=== PATIENT | female | born 1960 ===

== ENCOUNTER 2024-04-03 02:37 | Emergency (ER) | payer SELFPAY ==
[2024-04-03] MEDS: Ketorolac 30 MG/ML SDV IM ONE (03:10)
[2024-04-03] MEDS: Lidocaine 1% with EPINEPHrine 1:100,000 20 ML MDV INJECT ONE (03:40)
[2024-04-03] MEDS: Acetaminophen/HYDROcodone 325-5 MG Tab PO ONE (03:40)
[2024-04-03] MEDS ORDERED: Acetaminophen/HYDROcodone 325-5 MG Tab ONE (04:00)
== END 2024-04-03 04:15 | disposition home or self-care (01) ==
LOC: LB.ED 02:37
DX: S52.572A Other intraarticular fracture of lower end of left radius, initial encounter for closed fracture (principal); S52.612A Displaced fracture of left ulna styloid process, initial encounter for closed fracture; S01.512A Laceration without foreign body of oral cavity, initial encounter; Z88.2 Allergy status to sulfonamides; Z79.82 Long term (current) use of aspirin; Z79.899 Other long term (current) drug therapy; Y04.0XXA Assault by unarmed brawl or fight, initial encounter
CPT/HCPCS: 12011; 70486; 72125; 73110-LT; 96372; 99283; 99284; A9270-GY; J1885; J2004